=== PATIENT | male | born 1995 | race African-American/Black ===

== ENCOUNTER 2022-11-09 09:15 | Outpatient (CLI) | payer OTHER | END 2022-11-09 09:16 | disposition home or self-care (01) | LOC: CSHWCC 09:15 | PROVIDERS: ATTEND Nurse Practitioner Family | DX: T81.89XD Other complications of procedures, not elsewhere classified, subsequent encounter (principal); S31.000D Unspecified open wound of lower back and pelvis without penetration into retroperitoneum, subsequent encounter; S31.100D Unspecified open wound of abdominal wall, right upper quadrant without penetration into peritoneal cavity, subsequent encounter | CPT/HCPCS: 97605 ==

== ENCOUNTER 2022-11-13 09:30 | Outpatient (CLI) | payer OTHER | END 2022-11-13 09:31 | disposition home or self-care (01) | LOC: CSHWCC 09:30 | PROVIDERS: ATTEND Nurse Practitioner Family | DX: S31.100D Unspecified open wound of abdominal wall, right upper quadrant without penetration into peritoneal cavity, subsequent encounter (principal); T81.89XD Other complications of procedures, not elsewhere classified, subsequent encounter; S31.000D Unspecified open wound of lower back and pelvis without penetration into retroperitoneum, subsequent encounter; S71.101D Unspecified open wound, right thigh, subsequent encounter | CPT/HCPCS: 97605 ==

== ENCOUNTER 2022-11-16 13:25 | Outpatient (CLI) | payer OTHER | END 2022-11-16 13:26 | disposition home or self-care (01) | LOC: CSHWCC 13:25 | PROVIDERS: ATTEND Nurse Practitioner Family | DX: S31.100D Unspecified open wound of abdominal wall, right upper quadrant without penetration into peritoneal cavity, subsequent encounter (principal); S31.000D Unspecified open wound of lower back and pelvis without penetration into retroperitoneum, subsequent encounter; S71.101D Unspecified open wound, right thigh, subsequent encounter; T81.89XD Other complications of procedures, not elsewhere classified, subsequent encounter | CPT/HCPCS: 97605 ==

== ENCOUNTER 2022-11-27 08:00 | Outpatient (CLI) | payer OTHER | END 2022-11-27 08:01 | disposition home or self-care (01) | LOC: CSHWCC 08:00 | PROVIDERS: ATTEND Nurse Practitioner Family | DX: T81.89XD Other complications of procedures, not elsewhere classified, subsequent encounter (principal); S31.100D Unspecified open wound of abdominal wall, right upper quadrant without penetration into peritoneal cavity, subsequent encounter; S71.101D Unspecified open wound, right thigh, subsequent encounter | CPT/HCPCS: 99213; G0463 ==

== ENCOUNTER 2022-11-30 11:22 | Outpatient (CLI) | payer OTHER | END 2022-11-30 11:23 | disposition home or self-care (01) | LOC: CSHWCC 11:22 | PROVIDERS: ATTEND Nurse Practitioner Family | DX: T81.89XD Other complications of procedures, not elsewhere classified, subsequent encounter (principal); S31.000D Unspecified open wound of lower back and pelvis without penetration into retroperitoneum, subsequent encounter; S71.101D Unspecified open wound, right thigh, subsequent encounter | CPT/HCPCS: 97607; 99213; G0463 ==

== ENCOUNTER 2022-12-04 11:11 | Outpatient (CLI) | payer OTHER | END 2022-12-04 11:12 | disposition home or self-care (01) | LOC: CSHWCC 11:11 | PROVIDERS: ATTEND Nurse Practitioner Family | DX: T81.89XD Other complications of procedures, not elsewhere classified, subsequent encounter (principal); S31.100D Unspecified open wound of abdominal wall, right upper quadrant without penetration into peritoneal cavity, subsequent encounter; S71.101D Unspecified open wound, right thigh, subsequent encounter | CPT/HCPCS: 99213; G0463 ==

== ENCOUNTER 2022-12-11 08:12 | Outpatient (CLI) | payer OTHER | END 2022-12-11 08:13 | disposition home or self-care (01) | LOC: CSHWCC 08:12 | PROVIDERS: ATTEND Nurse Practitioner Family | DX: S31.100D Unspecified open wound of abdominal wall, right upper quadrant without penetration into peritoneal cavity, subsequent encounter (principal) ==

== ENCOUNTER 2022-12-25 11:05 | Outpatient (CLI) | payer OTHER | END 2022-12-25 11:06 | disposition home or self-care (01) | LOC: CSHWCC 11:05 | PROVIDERS: ATTEND Nurse Practitioner Family | DX: S31.000D Unspecified open wound of lower back and pelvis without penetration into retroperitoneum, subsequent encounter (principal) | CPT/HCPCS: 17250 ==

== ENCOUNTER 2023-01-09 11:08 | Outpatient (CLI) | payer OTHER | END 2023-01-09 11:09 | disposition home or self-care (01) | LOC: CSHWCC 11:08 | PROVIDERS: ATTEND Nurse Practitioner Family | DX: W34.00XD Accidental discharge from unspecified firearms or gun, subsequent encounter (principal) | CPT/HCPCS: 99212; G0463 ==

== ENCOUNTER 2023-03-04 11:48 | Emergency (ER) | payer OTHER, SELFPAY | END 2023-03-04 13:00 | disposition home or self-care (01) | LOC: CSHERS 11:48 | DX: S76.211A Strain of adductor muscle, fascia and tendon of right thigh, initial encounter (principal); W18.30XA Fall on same level, unspecified, initial encounter ==

== ENCOUNTER 2025-01-03 13:51 | Emergency (ER) | payer OTHER, SELFPAY ==
[2025-01-03] MEDS ORDERED: Acetaminophen 500 MG TAB ONE (15:06)
[2025-01-03] MEDS ORDERED: Ketorolac Tromethamine 30 MG (1 mL) VIAL ONE (15:06)
== END 2025-01-03 15:58 | disposition home or self-care (01) ==
LOC: CSHERS 13:51
DX: S00.81XA Abrasion of other part of head, initial encounter (principal); R29.700 NIHSS score 0; W18.30XA Fall on same level, unspecified, initial encounter
CPT/HCPCS: 70450; 96372; 99283; J1885